=== PATIENT | male | born 1985 | race African-American/Black ===

== ENCOUNTER 2024-01-19 06:41 | Day surgery (SDC) | payer OTHER ==
[2024-01-19] MEDS ORDERED: LIDOCAINE HCL 2% 100 MG/5 ML IJ ONE (06:42)
[2024-01-19] MEDS ORDERED: DIPRIVAN 200 MG/20 ML IV ONE ×2 (08:32→08:39)
[2024-01-19] MEDS ORDERED: ROBINUL ONE (08:33)
--- NOTE | 2024-01-19 10:41 | XRAY ---
Indication: Bilateral L4-S1 MBB. Intraoperative fluoroscopy provided for 16 seconds. Single digital spot image submitted for interpretation demonstrates posterior needle tips projecting over the expected left and right L4-S1 nerve roots. Correlate with intraoperative findings/report.
--- NOTE | 2024-01-19 10:53 | XRAY ---
16 seconds of fluoroscopy was used in surgery for a bilateral L4-S1 MBB.
[2024-01-19] MEDS ORDERED: Lactated Ringers 1,000 ML IV ONE (11:49)
== END 2024-01-19 09:05 | disposition home or self-care (01) ==
LOC: SDC-PAIN 06:41
PROVIDERS: ATTEND Psychiatry & Neurology Pain Medicine
DX: M47.816 Spondylosis without myelopathy or radiculopathy, lumbar region (principal); E11.9 Type 2 diabetes mellitus without complications; Z79.899 Other long term (current) drug therapy
CPT/HCPCS: 64493; 64494; 72020; 77002; 82947; J2704

== ENCOUNTER 2024-02-23 08:03 | Day surgery (SDC) | payer OTHER ==
[2024-02-23] MEDS ORDERED: BUPIVACAINE 0.5% VIAL IJ ONE (08:04)
[2024-02-23] MEDS ORDERED: DIPRIVAN 200 MG/20 ML IV ONE (09:25)
--- NOTE | 2024-02-23 10:37 | XRAY ---
Indication: Bilateral L4-S1 MBB. Intraoperative fluoroscopy provided for 15 seconds. Single digital spot image submitted for interpretation demonstrates posterior needle tips projecting over the expected left and right L4-S1 nerve roots. Correlate with intraoperative findings/report.
[2024-02-23] MEDS ORDERED: Lactated Ringers 1,000 ML IV ONE (11:41)
--- NOTE | 2024-02-23 11:44 | XRAY ---
15 seconds of fluoroscopy was used in surgery for a bilateral L4-S1 MBB.
== END 2024-02-23 09:55 | disposition home or self-care (01) ==
LOC: SDC-PAIN 08:03
PROVIDERS: ATTEND Psychiatry & Neurology Pain Medicine
DX: M47.816 Spondylosis without myelopathy or radiculopathy, lumbar region (principal); E11.9 Type 2 diabetes mellitus without complications
CPT/HCPCS: 64493; 64494; 72020; 77002; 82947; J2704

== ENCOUNTER 2024-04-12 07:57 | Day surgery (SDC) | payer OTHER ==
[2024-04-12] MEDS ORDERED: BUPIVACAINE 0.5% VIAL IJ ONE (07:58)
[2024-04-12] MEDS ORDERED: Depo-Medrol 40 MG/ML IM ONE (07:58)
[2024-04-12] MEDS ORDERED: XYLOCAINE-MPF 1% 5ML SDV IJ ONE (07:58)
[2024-04-12] MEDS ORDERED: DIPRIVAN 200 MG/20 ML IV ONE ×2 (09:15→09:30)
[2024-04-12] MEDS ORDERED: Lactated Ringers 1,000 ML IV ONE (09:16)
--- NOTE | 2024-04-12 10:28 | XRAY ---
Indication: Right L4-S1 RFA. Intraoperative fluoroscopy provided for 22 seconds. 4 digital spot image submitted for interpretation demonstrates posterior needle tips projecting over the expected right L4-S1 nerve roots. Correlate with intraoperative findings/report.
--- NOTE | 2024-04-12 12:07 | XRAY ---
22 seconds of fluoroscopy was used in surgery for a right L4-S1 RFA.
== END 2024-04-12 09:50 | disposition home or self-care (01) ==
LOC: SDC-PAIN 07:57
PROVIDERS: ATTEND Psychiatry & Neurology Pain Medicine
DX: M47.816 Spondylosis without myelopathy or radiculopathy, lumbar region (principal); E11.9 Type 2 diabetes mellitus without complications
CPT/HCPCS: 64635; 64636; 72100; 77002; 82947; J1010; J2704

== ENCOUNTER 2025-10-03 08:52 | Day surgery (SDC) | payer OTHER ==
[2025-10-03] MEDS ORDERED: methylPREDNISolone acetate IM ONE (08:53)
[2025-10-03] MEDS ORDERED: LIDOCAINE HCL 1% 50 MG/5 ML VL IJ ONE (08:53)
[2025-10-03] MEDS ORDERED: BUPIVACAINE 0.5% VIAL IJ ONE (08:53)
[2025-10-03] MEDS ORDERED: propofoL IV ONE (10:22)
[2025-10-03] MEDS ORDERED: Lactated Ringers 1,000 ML IV ONE (11:26)
--- NOTE | 2025-10-03 12:14 | XRAY ---
20 seconds of fluoroscopy was used in surgery for a right L4-S1 RFA.
--- NOTE | 2025-10-03 12:16 | XRAY ---
Indication: Right L4-S1 RFA. Intraoperative fluoroscopy provided for 20 seconds. 4 digital spot image submitted for interpretation demonstrates posterior needle tips projecting over expected right L4-S1 nerve roots. Correlate with intraoperative findings/report.
== END 2025-10-03 11:05 | disposition home or self-care (01) ==
LOC: SDC-PAIN 08:52
PROVIDERS: ATTEND Psychiatry & Neurology Pain Medicine
DX: M47.817 Spondylosis without myelopathy or radiculopathy, lumbosacral region (principal)